=== PATIENT | female | born 2000 | race Hispanic/Latino ===

== ENCOUNTER 2025-08-07 19:43 | Inpatient (IN) | payer OTHER ==
[2025-08-07] MEDS ORDERED: Famotidine/PF 20 mg/2ml Vial SLOW IVP PRN (20:09)
[2025-08-07] MEDS ORDERED: Diphenoxylate HCl/Atropine Tablet PO PRN (20:09)
[2025-08-07] MEDS ORDERED: Carboprost 250 MCG/ML AMP IM PRN (20:09)
[2025-08-07] MEDS ORDERED: Ondansetron PF 4 MG/2 ML Vial IVP PRN ×3 (20:09→20:22)
[2025-08-07] MEDS ORDERED: Bicitra 30 ML UDCUP PO PRN (20:09)
[2025-08-07] MEDS ORDERED: hydrALAZINE 20 MG/ML VIAL SLOW IVP PRN (20:09)
[2025-08-07] MEDS ORDERED: Tranexamic Acid 1,000 MG/10 ML VIAL IVP PRN (20:09)
[2025-08-07] MEDS ORDERED: Methylergonovine 0.2 MG/ML VIAL IM PRN (20:09)
[2025-08-07] MEDS ORDERED: Acetaminophen 500 MG TAB PO PRN (20:09)
[2025-08-07] MEDS ORDERED: Azithromycin 500 MG in Sodium Chloride 0.9% 250 ML 250 ML IVPB SCH (20:15)
[2025-08-07] MEDS ORDERED: Oxytocin 30 units/NS 500 ML 500 ML IV SCH (20:15)
[2025-08-07] MEDS ORDERED: Ketorolac Tromethamine 30 MG (1 mL) VIAL IVP PRN (20:22)
[2025-08-07] MEDS ORDERED: diphenhydrAMINE 50 MG/ML VIAL IVP PRN (20:22)
[2025-08-07] MEDS ORDERED: Meperidine HCl/PF 25 MG (1 mL) VIAL SLOW IVP PRN (20:22)
[2025-08-07 20:26] LABS: Hematocrit 36.4 % (34.9-44.5); Hemoglobin 12.4 g/dL (12.0-15.5); Mean Corpuscular Hemoglobin 27.9 pg (27.0-33.0); Mean Corpuscular Volume 82.0 fL (81.6-98.3); Platelet Count 278 10x3/uL (150-450); Red Blood Cell (RBC) Count 4.44 10x6/uL (3.90-5.03); White Blood Cell (WBC) Count 10.42 10x3/uL (3.5-10.5)
[2025-08-07] MEDS ORDERED: Communication Order-Pharmacy FS SCH (20:30)
[2025-08-07 21:12] VITALS: BMI 36.7
[2025-08-07 21:24] LABS: Hep B Surf Ag - L&D Non-Reactive S/CO (NonReactive)
[2025-08-07 21:25] LABS: Syphilis Antibody Index 0.08 S/CO (<1.00 Non-Reactive)
[2025-08-07] MEDS: Ketorolac Tromethamine 30 MG (1 mL) VIAL IVP SCH (23:05)
[2025-08-08] MEDS ORDERED: diphenhydrAMINE 25 MG CAP PO PRN (00:50)
[2025-08-08] MEDS ORDERED: Ondansetron PF 4 MG/2 ML Vial IVP PRN (00:50)
[2025-08-08] MEDS ORDERED: Bisacodyl 10 MG SUPP PR PRN (00:50)
[2025-08-08] MEDS ORDERED: hydrALAZINE 20 MG/ML VIAL SLOW IVP PRN (00:50)
[2025-08-08] MEDS ORDERED: Lanolin Ointment 7 GM TUBE TOP PRN (00:50)
[2025-08-08] MEDS: Ketorolac Tromethamine 30 MG (1 mL) VIAL IVP SCH (05:33)
[2025-08-08] MEDS: Simethicone Chewable 80 MG TAB PO PRN (05:52)
[2025-08-08 06:13] LABS: Hematocrit 28.8 % (34.9-44.5); Hemoglobin 9.5 g/dL (12.0-15.5); Mean Corpuscular Hemoglobin 27.7 pg (27.0-33.0); Mean Corpuscular Volume 84.0 fL (81.6-98.3); Platelet Count 217 10x3/uL (150-450); Red Blood Cell (RBC) Count 3.43 10x6/uL (3.90-5.03); White Blood Cell (WBC) Count 15.91 10x3/uL (3.5-10.5)
[2025-08-08] MEDS: Bupivacaine 0.75% W/DEXTROSE 8.25% 2 ML AMP ONE (07:54)
[2025-08-08] MEDS: Phenylephrine 40 MG/NS 250 ML 250 ML ONE (07:54)
[2025-08-08] MEDS: Ondansetron PF 4 MG/2 ML Vial ONE (07:54)
[2025-08-08] MEDS: Azithromycin 500 MG VIAL ONE (07:54)
[2025-08-08] MEDS: CEFAZOLIN 2 GM VIAL ONE (07:54)
[2025-08-08] MEDS: Dexamethasone 10 MG/ML VIAL ONE (07:55)
[2025-08-08] MEDS: Oxytocin 10 UNITS/ML VIAL ONE (07:55)
[2025-08-08] MEDS: Famotidine/PF 20 mg/2ml Vial ONE (07:55)
[2025-08-08] MEDS: Erythromycin Base 0.5% Oint 1 GM TUBE ONE (07:55)
[2025-08-08] MEDS: Ferrous Sulfate 325 MG TAB PO SCH (08:23)
[2025-08-08] MEDS ORDERED: Meperidine HCl/PF 25 MG (1 mL) VIAL IM PRN (09:30)
[2025-08-08] MEDS: HYDROcodone/Acetaminophen 5/325 mg Tablet PO PRN (15:53)
[2025-08-08] MEDS: Oxytocin 30 units/NS 500 ML 0 ML ONE (19:37)
[2025-08-09] MEDS: Ibuprofen 800 MG TAB PO SCH (03:54)
[2025-08-09] MEDS: HYDROcodone/Acetaminophen 5/325 mg Tablet PO PRN (10:31)
[2025-08-09 10:58] VITALS: TEMP 98.1
[2025-08-10] MEDS: Boostrix 0.5 ML (Tdap) VIAL (>/=7 yrs of age) IM ONE (07:24)
[2025-08-10] MEDS: Ibuprofen 800 MG TAB PO SCH (07:24)
[2025-08-10 08:49] VITALS: BP 115/72
== END 2025-08-10 17:27 | disposition home or self-care (01) | DRG 788 ==
LOC: UNDOADMIN 19:43 → CSHLD 19:43 → CSHPED 08-08 00:10
PROVIDERS: ADMIT Family Medicine; ATTEND Family Medicine
PROC: 10D00Z1 Extraction of Products of Conception, Low, Open Approach (ICD-10-PCS; principal; 2025-08-07)
DX: O32.2XX0 Maternal care for transverse and oblique lie, not applicable or unspecified (principal); Z3A.39 39 weeks gestation of pregnancy; Z37.0 Single live birth
CPT/HCPCS: 36415; 51702; 85027; 86780; 86850; 86900; 86901; 87340; 99285; C1889; J1100; J1885; J2274; J2405; J2550; J2590; J3490